=== PATIENT | female | born 1935 | race Caucasian/White ===

== ENCOUNTER 2017-03-25 10:52 | Emergency (ER) | payer MEDICARE, BC ==
[~2017-03-25] VITALS: Ht 152.4 cm; Wt 53.6 kg
[~2017-03-25 10:52] MED LIST: COUMADIN2.5 MG PO; MIRALAX17 GM/DOSE PO; OMEPRAZOLE20 MG PO; PHENERGAN 25 TA25 MG PO; PRILOSEC 20MG20 MG PO; PROTONIX20 MG PO; THICK-IT1 POW PO; VIBRAMYCIN100 MG PO; WARFARIN SOD5 MG PO; ZYRTEC10 MG PO
[2017-03-25] MEDS ORDERED: PROMETH-CODEIN 65 ML PO (11:01)
[2017-03-25 12:24] VITALS: BP 149/74
[2017-03-25 12:57] LABS: PROTHROMBIN TIME 16.3 SECONDS (9.0-12.0)
== END 2017-03-25 12:28 | disposition home or self-care (01) ==
LOC: ED 10:52
PROVIDERS: Physician Assistant
DX: S81.811A Laceration without foreign body, right lower leg, initial encounter (principal); Z79.01 Long term (current) use of anticoagulants; W22.03XA Walked into furniture, initial encounter; Y92.009 Unspecified place in unspecified non-institutional (private) residence as the place of occurrence of the external cause; Z95.2 Presence of prosthetic heart valve; K21.9 Gastro-esophageal reflux disease without esophagitis
CPT/HCPCS: 90715